=== PATIENT | male | born 1945 | race Caucasian/White ===

== ENCOUNTER 2024-12-12 00:28 | Emergency (ER) | payer OTHER ==
[~2024-12-12] VITALS: Ht 193 cm; Wt 111.1 kg
[~2024-12-12 00:28] MED LIST: LOSHYD PO; Omeprazole20 M1; Simvastatin20 MG PO
[2024-12-12 01:34] LABS: Source, Urine Clean Catch
[2024-12-12 01:38] LABS: Bilirubin, Urine Neg (Neg); Blood, Urine Neg (Neg); Glucose Qualitative, Urine Neg (Neg); Ketones, Urine Neg (Neg); Leukocyte Esterase, Urine Neg (Neg); Nitrite, Urine Neg (Neg); Protein, Urine Neg (Neg); Specific Gravity, Urine 1.015 (1.003-1.022); Urobilinogen, Urine NORM (Normal)
[2024-12-12 01:39] LABS: Appearance, Urine Clear (Clear); Color, Urine Pale Yellow (P-Yellow)
[2024-12-12 02:12] VITALS: BP 137/77
== END 2024-12-12 02:13 | disposition home or self-care (01) ==
LOC: ER 00:28
PROVIDERS: Physician Assistant
DX: R30.0 Dysuria (principal); Z88.8 Allergy status to other drugs, medicaments and biological substances; Z79.899 Other long term (current) drug therapy; I10 Essential (primary) hypertension; E78.5 Hyperlipidemia, unspecified
CPT/HCPCS: 81003; 99283